=== PATIENT | male | born 1985 | race Caucasian/White ===

== ENCOUNTER 2017-09-25 20:27 | Emergency (ER) | payer OTHER ==
[~2017-09-25] VITALS: Ht 188 cm; Wt 68.0 kg
== END 2017-09-25 21:21 | disposition home or self-care (01) ==
LOC: ER 20:27
DX: S60.450A Superficial foreign body of right index finger, initial encounter (principal); Z87.891 Personal history of nicotine dependence; Z23 Encounter for immunization; W22.8XXA Striking against or struck by other objects, initial encounter
CPT/HCPCS: 10120; 90471; 90714; 99283

== ENCOUNTER 2020-10-12 10:15 | Emergency (ER) | payer OTHER ==
[~2020-10-12] VITALS: Ht 188 cm; Wt 68.0 kg
[2020-10-12 11:36] LABS: Source, Urine Clean Catch
[2020-10-12 11:50] LABS: Appearance, Urine Clear (Clear); Bilirubin, Urine Neg (Neg); Blood, Urine Neg (Neg); Color, Urine Yellow (P-Yellow); Glucose Qualitative, Urine Neg (Neg); Ketones, Urine Neg (Neg); Leukocyte Esterase, Urine Neg (Neg); Nitrite, Urine Neg (Neg); Protein, Urine Neg (Neg); Urobilinogen, Urine NORM (Normal)
== END 2020-10-12 13:25 | disposition home or self-care (01) ==
LOC: ER 10:15
PROVIDERS: Emergency Medicine
DX: N50.9 Disorder of male genital organs, unspecified (principal)
CPT/HCPCS: 76870; 81003; 82105; 84702; 99284-25

== ENCOUNTER 2021-10-05 14:32 | Emergency (ER) | payer OTHER ==
[~2021-10-05] VITALS: Ht 188 cm; Wt 68.0 kg
== END 2021-10-05 17:25 | disposition home or self-care (01) ==
LOC: ER 14:32
DX: M21.922 Unspecified acquired deformity of left upper arm (principal); M25.512 Pain in left shoulder; W01.0XXA Fall on same level from slipping, tripping and stumbling without subsequent striking against object, initial encounter; Y93.01 Activity, walking, marching and hiking; Y92.9 Unspecified place or not applicable
CPT/HCPCS: 73030; 73200; 99284-25